=== PATIENT | male | born 1965 | race Caucasian/White ===

== ENCOUNTER 2025-05-03 11:16 | Emergency (ER) | payer BC ==
[2025-05-03 11:40] VITALS: RESP 18; TEMP 97.7
[2025-05-03] MEDS ORDERED: Norflex 60 MG/2 ML ONE (11:45)
[2025-05-03] MEDS: Norflex 60 MG/2 ML IM ONE (11:48)
--- NOTE | 2025-05-03 11:56 | ERPHSYRPT ---
- History of Present Illness Source: patient Physician History: Patient comes to the emergency room due to right hip pain has been on for the past couple days patient works on a forklift says that he feels like he "jacked up his back " Patient says a spasm sharp-like in nature radiates only around the buttocks area denies any radiculopathy sinuses or urinary fecal incontinence. Denies any actual injury has tried some Tylenol with no relief. What makes it worse is when he lifts his leg up but when he bends his knee it makes him feel better. Timing/Duration: day(s) Method of Injury: unknown Quality: sharp Back Pain Location: coccyx Back Pain Radiation: buttocks Severity of Pain-Max: moderate Severity of Pain-Current: moderate Modifying Factors: Improves With: movement Associated Symptoms: lower back pain, muscle spasms Allergies/Adverse Reactions: No Known Drug Allergies Allergy (Verified 10/10/23 09:06) Home Medications: Levothyroxine Sodium 25 Mcg [Synthroid 25 Mcg] 100 mcg PO DAILY 12/30/12 [History] Omeprazole 40 mg PO DAILY 09/10/22 [History] tadalafiL [Cialis] 10 mg PO DAILY PRN 09/19/23 [History] Methylcellulose [Fiber] 1 tab PO DAILY 10/10/23 [History] Multivitamin/Iron/Folic Acid [Centrum Adults Tablet] 1 tab PO DAILY 10/10/23 [History] Hx Tetanus, Diphtheria Vaccination/Date Given: Yes (UP TO DATE) Hx Influenza Vaccination/Date Given: No Hx Pneumococcal Vaccination/Date Given: No Travel Risk - Emerging Infectious Disease Are you exhibiting symptoms associated with any current EIDs: No - Review of Systems Constitutional: No Fever, No Chills Respiratory: No Cough, No Dyspnea Cardiac: No Chest Pain, No Edema, No Syncope Abdominal/Gastrointestinal: No Abdominal Pain, No Nausea, No Vomiting, No Diarrhea Genitourinary Symptoms: No Dysuria Musculoskeletal: Back Pain Skin: No Symptoms Neurological: No Symptoms Psychological: No Symptoms - Past Medical History Pertinent Past Medical History: Yes Neurological History: No Pertinent History ENT History: No Pertinent History Cardiac History: No Pertinent History Respiratory History: No Pertinent History Endocrine Medical History: Hypothyroidism Musculoskeletal History: No Pertinent History GI Medical History: No Pertinent History History: No Pertinent History Psycho-Social History: No Pertinent History Male Reproductive Disorders: No Pertinent History Other Medical History: BACK PAIN - Past Surgical History Past Surgical History: Yes Cardiac: No Pertinent History Respiratory: No Pertinent History Gastrointestinal: No Pertinent History Genitourinary: No Pertinent History Musculoskeletal: Orthopedic Surgery Male Surgical History: No Pertinent History Other Surgical History: LASIK. amputated tip of right ring finger - Social History Smoking Status: Current some day smoker How long have you smoked: 40 yrs Exposure to second hand smoke: Yes Drug Use: none - Nursing Vital Signs Nursing Vital Signs: Initial Vital Signs Temperature 97.7 F 05/03/25 11:16 Pulse Rate 83 05/03/25 11:16 Respiratory Rate 18 05/03/25 11:16 Blood Pressure 146/93 05/03/25 11:16 O2 Sat by Pulse Oximetry 98 05/03/25 11:16 Pain Scale Pain Intensity 6 - Physical Exam General Appearance: mild distress Respiratory Exam: normal breath sounds, lungs clear, No respiratory distress Cardiovascular Exam: regular rate/rhythm, normal heart sounds Gastrointestinal Exam: soft Back Exam: decreased range of motion, muscle spasm, point tenderness, No vertebral tenderness Extremity Exam: normal inspection SpO2: 98 Ordered Tests: Medication Summary Discontinued Medications Generic Name Dose Route Start Last Admin Trade Name Freq PRN Reason Stop Dose Admin Lidocaine 1 patch 05/03/25 11:41 Lidocaine Hcl 1 Patch Patch TOP 05/03/25 11:42 ONCE ONE Orphenadrine Citrate 60 mg 05/03/25 11:41 05/03/25 11:48 Orphenadrine Citrate 60 Mg/2 Ml Vial IM 05/03/25 11:42 60 mg STAT ONE Administration Orphenadrine Citrate Confirm 05/03/25 11:45 Orphenadrine Citrate 60 Mg/2 Ml Vial Administered 05/03/25 11:46 Dose 60 mg .ROUTE .[employer]rbix - [employer] - Progress Progress: unchanged Progress Note: 05/03/25 12:07 History physical exam is consistent with piriformis syndrome. Patient will be sent home on muscle relaxer steroids and told to follow-up with orthopedics. At this time based on history mechanism and no history of trauma and no signs of cauda equina syndrome the patient does not require any imaging of his hip area patient is able to ambulate on it but he starts spasming. Patient has a job that is related to [employer] and Patient believes has contributed to this issue. - Departure Departure Disposition: Home Clinical Impression: Piriformis syndrome of right side Condition: Good Critical Care Time: No Referrals: [facility] [Primary Care Provider, UNKNOWN] - Follow up/PCP as directed Instructions: Back Flexion Stretching Exercises, Radiculopathy of the neck and back (including sciatica) - Discharge instruc Forms: Work/School Release Form Prescriptions: Cyclobenzaprine HCl 10 mg [Cyclobenzaprine 10 MG] 10 mg PO TID #10 tablet Prednisone 10 mg [Deltasone 10 mg] 10 mg PO TID #12 tablet
[2025-05-03] MEDS: Lidoderm Patch 5% TOP ONE (12:01)
[2025-05-03 12:13] VITALS: BP 134/86; PULSE 78; O2SAT 96
== END 2025-05-03 12:34 | disposition home or self-care (01) ==
LOC: ED 11:16
DX: G57.01 Lesion of sciatic nerve, right lower limb (principal); M25.551 Pain in right hip; Z79.899 Other long term (current) drug therapy; Z72.0 Tobacco use